=== PATIENT | male | born 1945 | race African-American/Black ===

== ENCOUNTER 2020-06-13 10:57 | Outpatient (CLI) | payer MEDICARE, SELFPAY ==
--- NOTE | ~2020-06-13 | US_ITS ---
EXAMINATION: US venous doppler [facility] EXAM DATE: 06/13/2020 11:46 INDICATION: Left leg edema. TECHNIQUE: Multiple grayscale, color flow and Doppler images of the left lower extremity deep venous system were obtained and reviewed. There is no prior study for comparison. FINDINGS: The left common femoral, femoral and profunda veins demonstrate normal color flow, respirat ory variation, augmentation and compressibility. Compressibility, color flow confirmed within the le ft popliteal, posterior tibial, peroneal, and greater saphenous veins. IMPRESSION: No left lower extremity deep venous thrombosis. Reviewed, dictated and finalized at location B.
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
[2020-06-13 12:44] LABS: Anion Gap 8 mmol/L (8-16); Blood Urea Nitrogen 20 mg/dL (9-20); Calcium 9.3 mg/dL (8.4-10.2); Carbon Dioxide 24 mmol/L (22-30); Chloride 105 mmol/L (98-107); Estimated Glomerular Filt Rate 40; Glucose 117 mg/dL (75-110); Potassium 4.3 mmol/L (3.4-5.0); Sodium 137 mmol/L (137-145)
[2020-06-13 12:53] LABS: NT Pro B Type Natriuretic Pept 3040 pg/mL (5-100)
== END 2020-06-13 10:58 | disposition home or self-care (01) ==
LOC: ANHIMG 11:06
PROVIDERS: PCP Family Medicine; Visit Provider Nurse Practitioner
DX: R60.9 Edema, unspecified (principal); R06.02 Shortness of breath; I12.9 Hypertensive chronic kidney disease with stage 1 through stage 4 chronic kidney disease, or unspecified chronic kidney disease; N18.30 Chronic kidney disease, stage 3 unspecified
CPT/HCPCS: 36415; 71046; 80048; 83880; 93971

== ENCOUNTER 2020-07-04 10:25 | Outpatient (CLI) | payer MEDICARE, SELFPAY ==
--- NOTE | 2020-07-04 10:44 | ECHO_ITS ---
Patient Info Name: Neo Oquendo Age: 75 years : 1945 Gender: Male Ht: 73 in Wt: 298 lbs BSA: 2.69 m2 HR: 68 bpm BP: 129 / 78 mmHg Technical Quality: Good Exam Date: 07/04/2020 11:10 AM Exam Location: [facility] Patient Status: Outpatient Admit Date: 07/04/2020 Staff Ordering Physician: Andrade South DO Preschool Assistant Director: Maggie Dewey RDCS Attending Provider: Andrade South DO Referring Physician: Brannon TAYLOR; Exam Type: CA echo doppler color flow Study Info Indications - MORA Complete two-dimensional, color flow and Doppler transthoracic echocardiogram is performed. Summary 1. Complete two-dimensional, color flow and Doppler transthoracic echocardiogram is performed. 2. Left ventricular chamber dimension is normal. 3. Left ventricular systolic function is normal, estimated at 60-65%. 4. There is moderately increased left ventricular wall thickness. 5. The left ventricular diastolic function is grade I diastolic dysfunction. 6. E/e' 7 is not elevated. 7. Left atrial chamber dimension is severely enlarged. 8. Right atrial chamber dimension is moderately enlarged. 9. There is mild aortic valve sclerosis. 10. There is mild mitral valve regurgitation. 11. There is mild to moderate tricuspid valve regurgitation. 12. Severe pulmonary hypertension, estimated pulmonary arterial systolic pressure is 63 mmHg. 13. Normal inferior vena cava with <50% collapse upon inspiration consistent with elevated right atrial pressure, 10 mmHg. Left Ventricle E/e' 7 is not elevated. Left ventricular chamber dimension is normal. Left ventricular systolic function is normal, estimated at 60-65%. There is moderately increased left ventricular wall thickness. The left ventricular diastolic function is grade I diastolic dysfunction. Right Ventricle Right ventricular systolic function is normal and with normal TAPSE 2.4 cm.. Right ventricular chamber dimension is normal. Left Atria Left atrial chamber dimension is severely enlarged. Right Atria Right atrial chamber dimension is moderately enlarged. Aortic Valve The aortic valve is trileaflet. There is mild aortic valve sclerosis. There is no aortic valve stenosis. There is no aortic valve regurgitation. Pulmonic Valve There is no pulmonic regurgitation. Mitral Valve There is no mitral valve stenosis. There is mild mitral valve regurgitation. Tricuspid Valve There is mild to moderate tricuspid valve regurgitation. Severe pulmonary hypertension, estimated pulmonary arterial systolic pressure is 63 mmHg. Pericardium/Pleural There is no pericardial effusion. Inferior Vena Cava Normal inferior vena cava with <50% collapse upon inspiration consistent with elevated right atrial pressure, 10 mmHg. Aorta The aortic root size at the sinus of Valsalva is normal. Left Ventricular Outflow Tract Name Value Normal LVOT 2D LVOT Diameter 2.1 cm LVOT Doppler LVOT Peak Gradient 5 mmHg LVOT Mean Gradient 2 mmHg LVOT VTI 24 cm LVOT VTI/AV VTI Ratio
== END 2020-07-04 10:26 | disposition home or self-care (01) ==
LOC: ANHCARD 10:26
PROVIDERS: PCP Family Medicine; Visit Provider Internal Medicine Cardiovascular Disease
DX: R06.00 Dyspnea, unspecified (principal); I34.0 Nonrheumatic mitral (valve) insufficiency; I36.1 Nonrheumatic tricuspid (valve) insufficiency; I27.20 Pulmonary hypertension, unspecified
CPT/HCPCS: 93306

== ENCOUNTER 2020-09-09 08:52 | Outpatient (CLI) | payer MEDICARE, SELFPAY ==
--- NOTE | ~2020-09-09 | NM_ITS ---
EXAMINATION: NM edie stress w perfusion DATE: 09/09/2020 15:22 INDICATION: Dyspnea TECHNIQUE: Rest images were obtained following intravenous administration of 11 mCi Tc99m tetrofosmin (Myoview). The patient was infused intravenously with Lexiscan (Regadenoson). Then, 22.3 mCi Tc99m t etrofosmin (Myoview) was administered intravenously, and stress images were obtained. Data was recons tructed into short axis and horizontal and vertical long axis SPECT images. Gated SPECT images were a lso obtained. COMPARISON: None. FINDINGS: There is no definite reversible or fixed perfusion abnormality to suggest ischemia or infar ction. There is normal left ventricular chamber size, wall motion and ejection fraction. Left ventr icular ejection fraction measures 66%. IMPRESSION: 1. Normal myocardial perfusion at rest and during stress. 2. Left ventricular ejection fraction measuring 66%. Reviewed, dictated and finalized at location A.
--- NOTE | 2020-09-09 09:27 | EST_ITS ---
Patient Info Name: Neo Oquendo Age: 75 years : 1945 Gender: Male Ht: 73 in Wt: 260 lbs BSA: 2.50 m2 Exam Date: 09/09/2020 10:38 AM Exam Location: [facility] Stress Patient Status: Outpatient Admit Date: 09/09/2020 Staff Ordering Physician: Andrade South DO Attending Provider: Andrade South DO Exercise Technologist: Yelitza Walters RDCS Exercise Physician: Andrade South DO Exam Type: CA stress edie w NM Study Info Indications R06.00 - Dyspnea, unspecified A regadenoson stress test was performed. Summary 1. 1. Negative lexiscan stress test for ischemic ST changes by ECG criteria. 2. 2. Stable hemodynamics throughout the test. 3. 3. Nuclear scan to follow and will be reported separately. Please correlate with it. 4. 4. Patient informed of the above results. Protocol: Lexiscan Stress ECG Details Stage: REST Duration (min): 5 min : 53 sec HR (bpm): 74 SBP (mmHg): 171 DBP (mmHg): 80 Stage: REST Duration (min): 9 min : 47 sec HR (bpm): 76 SBP (mmHg): 171 DBP (mmHg): 80 Stage: STAGE 1 Duration (min): 0 min : 59 sec HR (bpm): 80 SBP (mmHg): 161 DBP (mmHg): 88 Stage: RECOVERY Duration (min): 1 min : 0 sec HR (bpm): 80 SBP (mmHg): 151 DBP (mmHg): 86 Stage: RECOVERY Duration (min): 2 min : 0 sec HR (bpm): 77 SBP (mmHg): 151 DBP (mmHg): 86 Stage: RECOVERY Duration (min): 3 min : 0 sec HR (bpm): 67 SBP (mmHg): 154 DBP (mmHg): 84 Stage: RECOVERY Duration (min): 3 min : 3 sec HR (bpm): 71 SBP (mmHg): 154 DBP (mmHg): 84 Rest HR: 76 bpm Peak HR: 85 bpm Rest Sys BP: 171 mmHg Peak Sys BP: 161 mmHg Max Pred HR: 144 bpm % Max Pred HR: 59 % Target HR: 122 bpm Max RPP: 13,685 bpm*mmHg Termination Reason: Completed protocol Cardiac Symptoms: Shortness of breath Total Time: 1 min : 0 sec Rest Banks BP: 80 mmHg Peak Banks BP: 88 mmHg Total Dose: 0.4 mg Resting ECG Atrial fibrillation, cannot r/o septal infarct, age indeterminate. Stress ECG No ST changes. Arrhythmias None. Report Signatures
== END 2020-09-09 08:53 | disposition home or self-care (01) ==
LOC: ANHCARD 08:57
PROVIDERS: PCP Family Medicine; Visit Provider Internal Medicine Cardiovascular Disease
DX: R06.00 Dyspnea, unspecified (principal)
CPT/HCPCS: 78452; 93017; A9502; J2785

== ENCOUNTER 2021-05-24 11:51 | Outpatient (CLI) | payer MEDICARE, SELFPAY ==
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
== END 2021-05-24 11:52 | disposition home or self-care (01) ==
LOC: ANHIMG 11:57
PROVIDERS: PCP Family Medicine; Visit Provider Nurse Practitioner Adult Health
DX: M19.042 Primary osteoarthritis, left hand (principal); M18.12 Unilateral primary osteoarthritis of first carpometacarpal joint, left hand; Z89.022 Acquired absence of left finger(s); M19.032 Primary osteoarthritis, left wrist
CPT/HCPCS: 73130